=== PATIENT | female | born 1940 | race Caucasian/White ===

== ENCOUNTER → 2016-11-26 | Outpatient (CLI) | payer OTHER | LOC: FIMAGING 14:04 | PROVIDERS: ATTEND Internal Medicine | DX: Z13.820 Encounter for screening for osteoporosis (principal); M85.80 Other specified disorders of bone density and structure, unspecified site; Z78.0 Asymptomatic menopausal state; Z82.62 Family history of osteoporosis ==

== ENCOUNTER → 2016-12-13 | Outpatient (CLI) | payer OTHER | LOC: FIMAGING 16:46 → EDSTATUS 16:49 | PROVIDERS: ATTEND Internal Medicine | DX: M25.551 Pain in right hip (principal); M84.38XD Stress fracture, other site, subsequent encounter for fracture with routine healing; Z96.641 Presence of right artificial hip joint ==

== ENCOUNTER → 2017-04-18 | Outpatient (CLI) | payer OTHER | LOC: FIMAGING 14:07 | PROVIDERS: ATTEND Internal Medicine | DX: Z12.31 Encounter for screening mammogram for malignant neoplasm of breast (principal) | CPT/HCPCS: G0202 ==

== ENCOUNTER 2017-12-19 00:43 | Observation (INO) | payer OTHER ==
--- NOTE | 2017-12-19 00:46 | EDPHY ---
H & P Time Seen by Provider: 12/19/17 00:46 HPI/ROS: HPI CHIEF COMPLAINT: Generalized weakness, nausea HISTORY OF PRESENT ILLNESS: This is a very pleasant 77-year-old female, she presents emergency room with generalized weakness. Patient reports that she has been in bed all day as she has not felt well she has had muscle aches all over body and global weakness. She denies any chest pain or shortness of breath. Denies vomiting. Denies diarrhea or abdominal pain. Denies having a fever. Main complaint generalized weakness. She went to urinate use the bathroom this evening she stood up off the toilet and got very lightheaded felt like she was going to pass out she did go to the ground without head strike she did not have a complete syncopal episode. Past Medical History: Extensive arthritic disease, multiple joint replacements , history of polymyalgia rheumatica Past Surgical History: Multiple joint replacements Social History: Denies drugs alcohol tobacco Family History: Noncontributory ROS REVIEW OF SYSTEMS: A comprehensive 10 point review of systems is otherwise negative aside from elements mentioned in the history of present illness. Exam Constitutional nontoxic appearing triage nursing summary reviewed, vital signs reviewed, awake/alert. Eyes normal conjunctivae and sclera, EOMI, PERRLA. HENT normal inspection, atraumatic, dry mucus membranes, no epistaxis, neck supple/ no meningismus, no raccoon eyes. Respiratory clear to auscultation bilaterally, normal breath sounds, no respiratory distress, no wheezing. Cardiovascular rate normal, regular rhythm, no murmur, no edema, distal pulses normal. Gastrointestinal soft, non-tender, no rebound, no guarding, normal bowel sounds, no distension, no pulsatile mass. Genitourinary no CVA tenderness. Musculoskeletal no midline vertebral tenderness, full range of motion, no calf swelling, no tenderness of extremities, no meningismus, good pulses, neurovascularly intact. Skin pink, warm, & dry, no rash, skin atraumatic. Neurologic awake, alert and oriented x 3, AAOx3, moves all 4 extremities equally, motor intact, sensory intact, CN II-XII intact, normal cerebellar, normal vision, normal speech. Psychiatric normal mood/affect. Heme/Lymph/Immune no lymphadenopathy. Differential Diagnosis: Includes but is not limited to in a particular order dehydration, orthostatic syncope, vasovagal syncope, cardiac arrhythmia, electrolyte disturbance, infection, UTI, ACS Medical Decision Making: Plan for this patient IV establishment full gambling monitor obtain EKG, troponin, chest x-ray, basic blood work, gentle IV hydration , UA re-evaluate. Re-evaluation: EKG interpretation by me on record in [facility] system. Impression time of EKG 1:06 a.m., sinus rhythm rate of [address] elevation or ST depression no significant T-wave abnormalities nonischemic EKG. CT angiogram of the chest for positive D-dimer in syncope shows no evidence of PE. 0355: I did re-evaluate the patient this time she states she feels no better and feels globally weak. We discussed about being admitted versus going home in she would prefer to be admitted for generalized global weakness. I do not have a great reason why she is globally weak. I do not have any evidence of acute signs of infection, she was slightly dehydrated on exam she received IV fluids here. Urinalysis shows no infection. CT angiogram of her chest shows no PE despite positive D-dimer. Given her age, comorbidities, and feeling globally weak and does not feel safe going home I will keep her today to she is a fall risk. Source: Patient, EMS Constitutional: Initial Vital Signs Temperature (C) 37.1 C 12/19/17 00:47 Heart Rate 86 12/19/17 00:47 Respiratory Rate 18 12/19/17 00:47 Blood Pressure 131/68 H 12/19/17 00:47 O2 Sat (%) 92 12/19/17 00:47 O2 Delivery Mode Room Air Allergies/Adverse Reactions: cefazolin [Cefazolin] Allergy (Intermediate, Verified 12/19/17 00:46) COLITIS Home Medications: Medication Instructions Recorded Aspirin EC [Aspirin EC 81 mg (*)] 81 mg PO DAILY 12/19/17 Cholecalciferol Vit D3 [Vitamin D3 1,000 units PO DAILY 12/19/17 (*)] Diclofenac Sodium 1% [Voltaren Gel 1 berhane TP DAILY 12/19/17 (*)] FLUoxetine [Prozac 20 MG (*)] 20 mg PO DAILY 12/19/17 Gabapentin [Neurontin 300 MG (*)] 300 mg PO HS 12/19/17 Simvastatin [Zocor] 20 mg PO HS 12/19/17 Zolpidem Tartrate [Ambien 5MG (*)] 2.5 mg PO HS PRN 12/19/17 celeCOXIB [Celebrex (*)] 200 mg PO DAILY 12/19/17 traMADol [Ultram 50 mg (*)] 50 mg PO HS 12/19/17 Medical Decision Making - Data Points Laboratory Results: Laboratory Results 12/19/17 01:00 12/19/17 01:00 Medications Given: Acetaminophen (Tylenol) 650 mg PO Q4HRS PRN PRN Reason: Pain, Mild/Fever, Can Take PO Stop: 06/17/18 05:10 Last Admin: 12/19/17 10:19 Dose: 650 mg Enoxaparin Sodium (Lovenox) 40 mg SC DAILY KASEY Stop: 06/17/18 08:59 Last Admin: 12/19/17 10:14 Dose: 40 mg Gabapentin (Neurontin) 300 mg PO HS KASEY Stop: 06/17/18 20:59 Last Admin: 12/19/17 22:04 Dose: 300 mg Sodium Chloride (Ns) 1,000 mls @ 100 mls/hr IV CONT KASEY Stop: 06/17/18 05:14 Last Admin: 12/19/17 13:37 Dose: 1,000 mls Ondansetron HCl (Zofran) 4 mg IVP Q4HRS PRN PRN Reason: Nausea/Vomiting, Can't Take PO Stop: 06/17/18 05:10 Last Admin: 12/19/17 20:54 Dose: 4 mg Prednisone (Prednisone) 20 mg PO DAILY KASEY Stop: 06/17/18 15:14 Last Admin: 12/19/17 16:46 Dose: 20 mg Tramadol HCl (Ultram) 50 mg PO Q6HRS PRN PRN Reason: Pain, Moderate Able to Take PO Stop: 06/17/18 14:51 Last Admin: 12/19/17 22:04 Dose: 50 mg Zolpidem Tartrate (Ambien) 2.5 mg PO HS PRN PRN Reason: Sleep/Insomnia Stop: 06/17/18 20:23 Last Admin: 12/19/17 22:04 Dose: 2.5 mg Discontinued Medications Acetaminophen (Tylenol) 1,000 mg PO EDNOW ONE Stop: 12/19/17 04:04 Last Admin: 12/19/17 04:05 Dose: 1,000 mg Sodium Chloride (Ns) 1,000 mls @ 0 mls/hr IV EDNOW ONE; Wide Open PRN Reason: Protocol Stop: 12/19/17 00:51 Last Admin: 12/19/17 01:02 Dose: 1,000 mls Point of Care Test Results: Chemistry 12/19/17 12/19/17 03:22 01:12 POC Troponin I 0.02 ng/mL ng/mL 0.01 ng/mL ng/mL (0.00-0.08) (0.00-0.08) Departure - Departure Disposition: [facility] Inpatient Acute Clinical Impression: Generalized weakness Condition: Fair
[2017-12-19] MEDS ORDERED: NS 1,000 ML IV ONE (00:50)
--- NOTE | 2017-12-19 01:08 | CPEKG ---
Heart Rate: 83 RR Interval: 723 P-R Interval: 148 QRSD Interval: 84 QT Interval: 364 QTC Interval: 428 P [place]: -24 QRS [place]: 0 T Wave [place]: 23 EKG Severity - OTHERWISE NORMAL ECG - EKG Impression: SINUS RHYTHM EKG Impression: LOW VOLTAGE IN FRONTAL LEADS Electronically Signed By: Lauri Medellin 19-Dec-2017 07:27:11
[2017-12-19 01:14] LABS: PLATELET COUNT 142 10^3/uL (150-400)
[2017-12-19 01:15] LABS: INR 0.98 (0.83-1.16); PROTIME(PATIENT) 13.2 SEC (12.0-15.0)
[2017-12-19 01:16] LABS: CREATINE KINASE 56 IU/L (0-156)
[2017-12-19] MEDS ORDERED: IOPAMIDOL (ISOVUE 370) 100 ML BTL IV ONE (02:25)
[2017-12-19] MEDS ORDERED: ACETAMINOPHEN 500 MG TAB PO ONE (04:03)
[2017-12-19] MEDS ORDERED: ACETAMINOPHEN 500 MG TAB ONE (04:03)
[2017-12-19] MEDS ORDERED: HYDROCODONE/APAP 5/325 TAB PO PRN (05:11)
[2017-12-19] MEDS ORDERED: ACETAMINOPHEN 325 MG TAB PO PRN (05:11)
[2017-12-19] MEDS ORDERED: ONDANSETRON 4 MG/2 ML VIAL IVP PRN (05:11)
[2017-12-19] MEDS ORDERED: NS 1,000 ML IV SCH (05:15)
--- NOTE | 2017-12-19 05:48 | GHP ---
[f rep st] HISTORY AND PHYSICAL DATE OF ADMISSION: 12/19/2017 SOURCE: Patient provides history, appears reliable. EMR was reviewed. Case discussed with ED provider. CHIEF COMPLAINT: Generalized weakness and diffuse myalgias. HISTORY OF PRESENT ILLNESS: This is a very pleasant 77-year-old female with past medical history significant for polymyalgia rheumatica, osteoarthritis, and chronic pain, who presents to the emergency department today with complaints of diffuse myalgias and worsened joint pain. The patient reports that for the last 24 hours she has been significantly weak in all extremities and feeling quite fatigued. She denied any fevers or chills until she arrived to the emergency department and several hours later spiked a temp to 101 Fahrenheit, now with some shaking chills. The patient denies any nausea, vomiting, diarrhea, abdominal pain. She denies any cough, shortness of breath, rhinorrhea, sore throat. The patient is unable to identify any erythematous joints or immobile joints, rather she just reports that all of her joints hurt everywhere. The patient was at home and she had been lying in bed for approximately 14 hours. She finally got up out of bed to go to the bathroom. When she stood up from the toilet, she developed significant lightheadedness to the point that she became increasingly unsteady and lowered herself to the floor. The patient denies any head injury or complete loss of consciousness. EMS was called and the patient arrived via this transport. The patient denies any known sick contacts. She reports she is up to date on her pneumonia and last season's flu vaccine. She has not had any recent travel or known exposures. REVIEW OF SYSTEMS: GENERAL: Positive currently for fevers, chills. Prior to arrival in the emergency department, the patient denied any of these symptoms. SKIN: No rashes or sores. EYES: The patient does report a little bit of blurry vision, but no ocular pain. ENT: No congestion, sore throat, rhinorrhea. CV: The patient denies any chest pain or palpitations. RESPIRATORY: The patient denies any shortness of breath or cough. GI: No nausea, vomiting, abdominal pain, or diarrhea. : No dysuria or hematuria. MUSCULOSKELETAL: The patient with diffuse myalgias and joint pains as noted above in HPI. NEURO: The patient reports some generalized weakness, nothing focal. She does have a headache and some blurry vision as noted above. No focal deficits reported. PSYCH: The patient denies anxiety and depression. Remainder of review of systems negative except as noted above. ALLERGIES: Cefazolin. HOME MEDICATIONS: As per EMR. Limited on dosing, but vitamin D, Vicodin, tramadol, Zofran ODT, Celebrex, and Ambien. PAST MEDICAL HISTORY: Significant for polymyalgia rheumatica, osteoarthritis, and chronic pain. PAST SURGICAL HISTORY: Multiple total joints including right shoulder, bilateral total hip arthroplasties, bilateral total knee arthroplasties, and bilateral cataract extractions with lens placements. FAMILY HISTORY: The patient notes that her daughter has some form of autoimmune disease, but she is not able to specify. SOCIAL HISTORY: The patient denies any tobacco, drugs, or alcohol. She lives with her daughter and her nephew. CODE STATUS: Full. PHYSICAL EXAMINATION: VITAL SIGNS: Upon arrival to the emergency department, blood pressure 131/68, heart rate 86, respiratory rate 18, O2 saturation 92% on room air, with temperature 37.1. Current vital signs: Blood pressure 135/61, heart rate measured at 92 at bedside, is down to 77, respiratory rate 20, O2 saturation 94% on 2 L by nasal cannula, with a temperature 38.3. GENERAL: No acute distress. The patient is lying in bed quietly. She does appear uncomfortable and shaking. She does appear to have a little bit of disorientation as she is having no fever. She is redirectable. She appears to be acutely ill, but nontoxic. HEAD: Normocephalic, atraumatic. EYES: Extraocular muscles are intact. Pupils equal, round, react to light bilaterally and symmetric. Lens reflex is appreciated bilaterally. ENT: Mucous membranes appear dry. No oropharyngeal erythema or exudates. NECK: Supple. Trachea midline. CV: Regular rate and rhythm in the 80s. No murmurs , rubs, or gallops appreciated. RESPIRATORY: Lungs are clear to auscultation bilaterally. No wheezes, rales, or rhonchi. Good inspiratory effort. ABDOMEN : Soft, nondistended. No tenderness to palpation. No rebound, guarding, or masses appreciated. : No suprapubic tenderness to palpation. No CVA tenderness. No Aponte catheter in place. EXTREMITIES: Generalized weakness, deconditioning. Strength 4/5 in upper and lower extremities bilaterally and symmetric. The patient is able to turn independently. NEURO: Cranial nerves 2 -12 are grossly intact. No facial drooping. Moves all extremities as noted above with generalized weakness. The patient is awake, alert, and oriented x3. PSYCH: The patient with slight disorientation during the interview, but is redirectable. Thought process and content otherwise appropriate. LABORATORY STUDIES: WBC 6.02, H and H 14.3 and 43.7, MCV of 90.3, platelet count is 142, neutrophil percent 88.7%, no bandemia. ESR 46. PT is 13.2, INR 0.98, PTT is 31.5. D-dimer is 203. Sodium 138, potassium 4.5, chloride 103, CO2 21, anion gap 14, BUN 12, creatinine 0.6, GFR greater than 60, glucose 124, lactic acid 1.5, calcium 8.3, magnesium 2.0, total bilirubin 0.9, conjugated 0.6 , ALT 50, AST 59, alkaline phosphatase 83. CK is 56, CK-MB 0.27. Troponin is negative x2. BNP is 387. Total protein 7.1, albumin 4.0. CRP [id number]. UA : Specific gravity 1.003, after a liter of fluid, pH of 6.0, 1+ blood, trace ketones, RBCs of 5-10, WBCs 1-3, otherwise negative. Blood cultures x2 are pending. Chest x-ray: Image reviewed by me, report is still pending. No acute consolidations or effusions. Some chronic lung markings present. Some right perihilar prominence. Right shoulder replacement. Osteoarthritis in the left shoulder. CT angio with contrast: Preliminary report reviewed as well as image. No PE. Nonspecific mild paraseptal or peribronchial thickening. Large hiatal hernia. [place] mediastinal lymphadenopathy, stable from 2013. Atherosclerosis of aorta without aneurysm or dissection, and LAD and RCA calcifications. ASSESSMENT AND PLAN: Pleasant 77-year-old female with history of polymyalgia rheumatica, chronic pain, and osteoarthritis, who presents to the emergency department today with complaints of generalized weakness, now with fever. 1. Fever. Etiology for the patient's temperature unclear at this time. Her UA is normal. CTA and chest x-ray do not demonstrate any consolidations or infectious process. She does have a little bit of peribronchial thickening, but denies any respiratory symptoms. A full skin exam was unrevealing for any cellulitis or open wounds. UA is within normal limits and the patient is without any complaints of GI issues. The patient is undergoing rapid respiratory PCR. Will hold off on addition of antibiotics at this time. Blood cultures have been drawn. Her lactate is within normal limits and the patient is not meeting SIRS or sepsis criteria at this time. 2. Generalized weakness, suspect due to an early viral or bacterial illness. Plan as noted above. PT and OT have been consulted. Also consider exacerbation of the patient's polymyalgia once we ascertain whether she has an infectious process ongoing. Consider initiation of steroids, but at this time will hold off. 3. Dehydration. The patient has been with limited oral intake over the last 24 hours and still appears to be slightly dry. Blood pressures are adequate, but she did have a presyncopal episode. Will continue with IV fluid supplementation. She received a liter of normal saline in the emergency department already, but will plan to continue. 4. Dehydration, orthostatic versus vasovagal. Continue with IV fluid hydration. Orthostatic blood pressures once patient is stable. 5. Hyperglycemia, nonfasting lab. Repeat a.m. BMP. No history of diabetes. 6. History of polymyalgia rheumatica. The patient's CRP and ESR are elevated slightly. Plan as noted above for further evaluation of fever and consideration for steroids once a source identified or ruled out. 7. Chronic pain. The patient with Vicodin and tramadol on her med rec. The patient is currently resting comfortably. Tylenol and [place] p.r.n. 8. Fluid, electrolyte, nutrition. IV fluids as noted above. Electrolyte monitoring, replacement if needed. Advance diet as tolerated. 9. Prophylaxis. SCDs, Lovenox. 10. Code status is full. 11. Disposition. The patient is currently admitted under observation status to medical floor pending followup and further evaluation with labs as noted above. Patient is followed by Dr. Doris Kruger. ED provider called and notified team regarding patient's admission and they will plan to take over care later this morning. /[id number]/MODL MTDD
--- NOTE | 2017-12-19 09:08 | SOAPPROG ---
SOAP Progress Note Assessment/Plan: Assessment: 77 yo female seen in the ED this morning c/o generalized weakness over the day yesterday, so bad that she was unable to get up out of bed. When she arrived to the ED she spiked a fever of 101F and experienced some chills. She denies any cough, wheeze, SOB, n/v/d, abd pain, rash, dysuria. Workup has included negative cxr, NL UA, wbc NL, ddimer elevated but with CTA negative for PE, trops neg x2, blood cultures pending, influenza PCR negative, head to toe skin check negative for rash, wounds or cellulitis. Plan: -Fever of unknown etiology: workup grossly negative thus far (as discussed above) with blood cultures pending. -Weakness: no current source of infection that could be causing weakness, possible due to dehydration or early bacterial/viral infection. -Dehydration: continue IVF and will check orthostatic BPs this AM -PMR: takes vicodin and tramadol outpt, currently w/o complaint of acute pain or exacerbation -Chronic pain: as noted above, tramadol and vicodin -DVT prophylaxis: sq lovenox and ambulation -Disposition: Pt overall does not feel ill and strongly desires to discharge home with f/u in the office. Will plan to monitor temp over the morning and check orthostatic BPs, and if NL we will plan to d/c her home with f/u on Friday in the office. 12/19/17 09:00 Subjective: Resting comfortably in bed. Loretta denies any cough, wheeze, SOB, abd pain, n/v/d , dysuria, rash or feeling of illness. She very much wants to discharge home and f/u in the office. Objective: Vital Signs Temp Pulse Resp BP Pulse Ox 38.3 C 92 20 135/61 H 94 12/19/17 04:07 12/19/17 04:07 12/19/17 04:07 12/19/17 04:07 12/19/17 04:07 Laboratory Results 12/19/17 Unknown PT 13.2 SEC (12.0-15.0) 12/19/17 01:00 INR 0.98 (0.83-1.16) 12/19/17 01:00 Gen- AAOx3 Head- normocephalic, atraumatic Resp- LCTAB, no wheezing, rhonchi, rales CV- S1S2, RRR, no murmurs, rubs, gallops Abd- SNT, non distended, + BS Extremities- no peripheral edema Skin- warm and dry Neuro- grossly intact ICD10 Worksheet Patient Problems: Problems Problem Status Onset Generalized weakness Acute
[2017-12-19] MEDS: ENOXAPARIN 40 MG/0.4 ML SYR SC SCH (10:14)
[2017-12-19] MEDS: traMADol 50 MG TAB PO PRN ×2 (15:23→22:04)
[2017-12-19] MEDS: predniSONE 20 MG TAB PO SCH (16:46)
[2017-12-19] MEDS ORDERED: ZOLPIDEM TARTRATE 5 MG TAB PO PRN (20:24)
[2017-12-19] MEDS ORDERED: GABAPENTIN 300 MG CAP PO SCH (21:00)
[2017-12-20] MEDS: traMADol 50 MG TAB PO PRN (05:09)
[2017-12-20 07:36] LABS: PLATELET COUNT 102 10^3/uL (150-400)
[2017-12-20] MEDS: predniSONE 20 MG TAB PO SCH (08:57)
[2017-12-20] MEDS ORDERED: ATORVASTATIN CALCIUM 10 MG TAB PO SCH (09:00)
[2017-12-20] MEDS ORDERED: ASPIRIN EC 81 MG TAB PO SCH (09:00)
[2017-12-20] MEDS ORDERED: FLUoxetine 20 MG CAP PO SCH (09:00)
[2017-12-20 09:20] VITALS: BP 109/59
[2017-12-20] MEDS: ENOXAPARIN 40 MG/0.4 ML SYR SC SCH (10:22)
--- NOTE | 2017-12-20 10:44 | SOAPPROG ---
SOAP Progress Note Assessment/Plan: Assessment: 77 yo female seen in the ED this morning c/o generalized weakness over the day yesterday, so bad that she was unable to get up out of bed. When she arrived to the ED she spiked a fever of 101F and experienced some chills. She denies any cough, wheeze, SOB, n/v/d, abd pain, rash, dysuria. Workup has included negative cxr, NL UA, wbc NL, ddimer elevated but with CTA negative for PE, trops neg x2, blood cultures pending, influenza PCR negative, head to toe skin check negative for rash, wounds or cellulitis. Plan: -Fever of unknown etiology: workup looking neg for URI, UTI, sepsis. Has been afebrile since the one temp elevation in ER -Weakness: responding well to prednisone and feeling much stronger today. likely 2/2 PMR. Will d/c her on 20mg BID and f/u in the office to start taper -Dehydration: BP stable, appears to be resolved -PMR: takes vicodin and tramadol outpt, currently w/o complaint of acute pain or exacerbation -Chronic pain: as noted above, tramadol and vicodin -Disposition: Will d/c as long as she is feeling good walking around this AM. Plan to f/u in the office on Friday12/20/17 10:41 Subjective: Resting in bed this AM. Says she is feeling much stronger, has been up walking and is not feeling the weakness she felt on admit. Pain is well controlled. Eager to go home. Objective: Vital Signs Temp Pulse Resp BP Pulse Ox 36.9 C 79 18 109/59 L 94 12/20/17 08:00 12/20/17 08:00 12/20/17 08:00 12/20/17 08:00 12/20/17 08:00 Microbiology 12/19/17 04:45 Respiratory Panel (PCR) - Final Nasal, Sinus - Swab No Organism Detected Laboratory Results 12/20/17 05:20 12/20/17 05:20 12/19/17 12/20/17 12/21/17 05:59 05:59 05:59 Intake Total 2750 Output Total 400 Balance 2350 PT 13.2 SEC (12.0-15.0) 12/19/17 01:00 INR 0.98 (0.83-1.16) 12/19/17 01:00 Gen- AAO, vitals stable Head- normocephalic, atraumatic Resp- LCTAB, no wheezing, rhonchi, rales CV- S1S2, RRR, no murmurs, rubs, gallops Abd- SNT, nondistended Extremities- no peripheral edema Skin- warm and dry ICD10 Worksheet Patient Problems: Problems Problem Status Onset Generalized weakness Acute
--- NOTE | 2017-12-20 10:49 | PDIAF ---
- Diagnosis Code Status: Full Code - Medication Management Discharge Medications: Medications to Continue on Transfer Aspirin EC [Aspirin EC 81 mg (*)] 81 mg PO DAILY 12/19/17 [Last Taken Unknown] Cholecalciferol Vit D3 [Vitamin D3 (*)] 1,000 units PO DAILY 12/19/17 [Last Taken Unknown] Diclofenac Sodium 1% [Voltaren Gel (*)] 1 [place] TP DAILY 12/19/17 [Last Taken Unknown] FLUoxetine [Prozac 20 MG (*)] 20 mg PO DAILY 12/19/17 [Last Taken Unknown] Gabapentin [Neurontin 300 MG (*)] 300 mg PO HS 12/19/17 [Last Taken Unknown] Simvastatin [Zocor] 20 mg PO HS 12/19/17 [Last Taken Unknown] Zolpidem Tartrate [Ambien 5MG (*)] 2.5 mg PO HS PRN 12/19/17 [Last Taken Unknown ] celeCOXIB [Celebrex (*)] 200 mg PO DAILY 12/19/17 [Last Taken Unknown] traMADol [Ultram 50 mg (*)] 50 mg PO HS 12/19/17 [Last Taken Unknown] predniSONE 20 mg PO BID 3 Days tablet 12/20/17 [Last Taken Unknown] Discharge Medications: Refer to the Discharge Home Medication list for PRN reason. - Orders Isolation Type: None Diet Recommendation: no restrictions on diet Diet Texture: Regular Texture Diet - Follow Up Care Current Providers and Referrals: Patient,NotPresent [Unknown] - As per Instructions
--- NOTE | 2017-12-20 12:08 | ASMTCMCOM ---
CM Note CM Note Notes: Pt lives at home with dtr and nephew, otherwise has been independent. She has been cleared by PT to go home. Anticipate pt will dc home w/support of daughter and nephew when medically stable. CM available for any changes. DC Plan: Independent Date Signed: 12/20/2017 12:07 PM Electronically Signed By:Nita Amor RN
[2017-12-20] MEDS ORDERED: predniSONE 20 MG TAB PO SCH (21:00)
== END 2017-12-20 14:45 | disposition home or self-care (01) ==
LOC: EDUNIT# → F3E 13:15
PROVIDERS: ADMIT Internal Medicine; ATTEND Internal Medicine
DX: R53.1 Weakness (principal); R11.0 Nausea; E86.0 Dehydration; E86.1 Hypovolemia; R50.9 Fever, unspecified; M35.3 Polymyalgia rheumatica; R73.9 Hyperglycemia, unspecified; Z96.611 Presence of right artificial shoulder joint; Z96.643 Presence of artificial hip joint, bilateral; Z96.653 Presence of artificial knee joint, bilateral
CPT/HCPCS: 71045; 71275; 93005; 96360; 97161; 97165; 99285; G0378; G8978; G8979; G8980; G8987; G8988; G8989; J1650; J2405; J7512; Q9967; 83605-PO; 84484-PO

== ENCOUNTER → 2017-12-23 | Outpatient (CLI) | payer OTHER ==
[~2017-12-23] MED LIST: GADOBUTROL 10 ML VIAL IVP ONE
== END ==
LOC: FIMAGING 16:00
PROVIDERS: ATTEND Nurse Practitioner Family
DX: G93.89 Other specified disorders of brain (principal)
CPT/HCPCS: 70553; A9585

== ENCOUNTER → 2017-12-30 | Outpatient (CLI) | payer OTHER | LOC: FIMAGING 12:36 | PROVIDERS: ATTEND Internal Medicine Rheumatology | DX: M43.12 Spondylolisthesis, cervical region (principal); M50.31 Other cervical disc degeneration, high cervical region; M50.321 Other cervical disc degeneration at C4-C5 level; M50.322 Other cervical disc degeneration at C5-C6 level; M50.323 Other cervical disc degeneration at C6-C7 level; M50.33 Other cervical disc degeneration, cervicothoracic region; M12.88 Other specific arthropathies, not elsewhere classified, other specified site; M48.02 Spinal stenosis, cervical region; M99.71 Connective tissue and disc stenosis of intervertebral foramina of cervical region ==

== ENCOUNTER → 2018-03-31 | Outpatient (CLI) | payer OTHER | LOC: FIMAGING 09:36 | PROVIDERS: ATTEND Internal Medicine | DX: R91.1 Solitary pulmonary nodule (principal); K44.9 Diaphragmatic hernia without obstruction or gangrene; K21.9 Gastro-esophageal reflux disease without esophagitis ==

== ENCOUNTER → 2018-04-20 | Outpatient (CLI) | payer OTHER | LOC: FIMAGING 13:17 | PROVIDERS: ATTEND Physician Assistant | DX: Z12.31 Encounter for screening mammogram for malignant neoplasm of breast (principal) ==